=== PATIENT | male | born 1980 ===

== ENCOUNTER 2017-01-31 18:54 | Emergency (ER) | payer OTHER ==
[2017-01-31 19:08] VITALS: BP 137/67; PULSE 93; TEMP 99.4; BMI 31.7
--- NOTE | 2017-01-31 19:28 | PDOC ---
History of Present Illness - General Chief Complaint: Injury Stated Complaint: RT HAND INJURY Time Seen by Provider: 01/31/17 19:13 History Source: Patient Exam Limitations: No Limitations - History of Present Illness Initial Comments: 01/31/17 19:50 Punching injury to wall with right fist approximately 2 hours before arrival to ER. Pain Location: reports: upper extremity Method of Injury: Yes: direct blow Loss of Consciousness: no loss of consciousness Associated Symptoms (Fall): denies symptoms Past History - Travel Traveled outside of the country in the last 30 days: No Close contact w/someone who was outside of country & ill: No - Past Medical History Allergies/Adverse Reactions: Allergies Allergy/AdvReac Type Severity Reaction Status Date / Time No Known Allergies Allergy Verified 01/31/17 19:07 Home Medications: Ambulatory Orders Oxycodone HCl/Acetaminophen [Percocet 5-325 mg Tablet -] 1 - 2 tab PO Q4H PRN # 10 tablet MDD 4 01/31/17 Other medical history: NONE - Psycho/Social/Smoking Cessation Hx Anxiety: No Suicidal Ideation: No Smoking History: Current every day smoker Number of Cigarettes Smoked Daily: 20 Information on smoking cessation initiated: Yes 'Breaking Loose' booklet given: 01/31/17 Hx Alcohol Use: No Drug/Substance Use Hx: No Substance Use Type: None Review of Systems - Review of Systems Able to Perform ROS?: Yes Is the patient limited [place] proficient: Yes Constitutional: Yes: Symptoms Reported, Malaise HEENTM: No: Symptoms Reported Musculoskeletal: Yes: Symptoms Reported, See HPI, Joint Pain, Joint Swelling Integumentary: Yes: Symptoms Reported Neurological: Yes: Symptoms reported All Other Systems: Reviewed and Negative *Physical Exam - Vital Signs Last Vital Signs Temp Pulse Resp BP Pulse Ox 99.4 F 93 H 20 137/67 99 01/31/17 19:04 01/31/17 19:04 01/31/17 19:04 01/31/17 19:04 01/31/17 19:04 - Physical Exam General Appearance: Yes: Nourished, Appropriately Dressed, Apparent Distress, Moderate Distress HEENT: positive: WERNER, Symmetrical, TMs Normal, Pharynx Normal Neck: positive: Tender, Supple. negative: Lymphadenopathy (R), Lymphadenopathy (L) Respiratory/Chest: positive: Lungs Clear Gastrointestinal/Abdominal: positive: Soft Musculoskeletal: positive: Normal Inspection Extremity: positive: Normal Capillary Refill, Normal Range of Motion, Tender ( with deformity to lateral hand with point tenderness at fifth/fourth metacarpal area. Range of motion of fingers intact but pain is reproduced with flexion and extension at fifth and fourth digits. Sensation intact distal digits) Integumentary: positive: Normal Color, Dry Neurologic: positive: retail service specialist II-XII NML intact, Fully Oriented, Alert, Normal Mood/ Affect, Normal Response, Motor Strength 03/13 ED Treatment Course - RADIOLOGY Radiology Studies Ordered: Category Date Time Status HAND- RIGHT [RAD] Stat Radiology 01/31/17 19:22 Ordered Progress Note - Progress Note Progress Note: Proximal aspect fifth meta-carpal fracture/boxer's fracture ulnar gutter splint placed sling given 2 Percocets for pain relief and *DC/Admit/Observation/Transfer Diagnosis at time of Disposition: Boxers fracture Qualifiers: Encounter type: initial encounter Fracture type: closed Qualified Code(s): S62.309A - Unspecified fracture of unspecified metacarpal bone, initial encounter for closed fracture - Discharge Dispostion Disposition: HOME Condition at time of disposition: Stable Admit: No - Referrals Referrals: Shannan Gallego MD [Primary Care Provider] - Home Brooks MD [Staff Physician] - - Patient Instructions Printed Discharge Instructions: DI for Boxer's Fracture Additional Instructions: Rest, ice to area on and off for 15 minutes 4-6 times a day Avoid heavy lifting or exercise until pain and swelling is resolved or until further directed Keep area highly elevated to reduce swelling Use splints/Uli wrap as directed Followup with orthopedist in one to 2 days for reevaluation and probable casting May use ibuprofen 2-200 mg tablets every 6 hours as needed for pain May use Percocet for severe pain - Post Discharge Activity Work/School Note: Back to Work
[2017-01-31] MEDS ORDERED: OXYCODONE/APAP 5/325MG COMBO TABLET ONE (19:44)
== END 2017-01-31 20:15 | disposition home or self-care (01) ==
LOC: JERFT 18:54
PROC: 2W3CX1Z Immobilization of Right Lower Arm using Splint (ICD-10-PCS; principal; 2017-01-31)
DX: S62.346A Nondisplaced fracture of base of fifth metacarpal bone, right hand, initial encounter for closed fracture (principal); W22.8XXA Striking against or struck by other objects, initial encounter; Y93.89 Activity, other specified; Y92.038 Other place in apartment as the place of occurrence of the external cause
CPT/HCPCS: 29125; 73130-TC-RT; 99281-25